=== PATIENT | male | born 1980 | race Caucasian/White ===

== ENCOUNTER 2017-03-26 13:42 | Emergency (ER) | payer MEDICARE, OTHER ==
[~2017-03-26] VITALS: Ht 185.4 cm; Wt 113.0 kg
[~2017-03-26 13:42] MED LIST: GLIM4TAB PO; INSU100I13 SQ; INSU100I17 SQ; LISI10TA2 PO; METF10002 PO; METO10TA81 PO; RANI150T2 PO
[2017-03-26] MEDS ORDERED: IV NORMAL SALINE 1,000ML 1,000 ML IV SCH (14:14)
[2017-03-26 14:20] VITALS: BP 153/98
[2017-03-26 14:22] LABS: BASO # 0.1 x10^3/uL (0.0-0.2); BASO % 1 % (0-3); EOS # 0.3 x10^3/uL (0.0-0.7); EOS % 6 % (0-3); HEMATOCRIT 28.6 % (39.0-53.0); HEMOGLOBIN 10.2 g/dL (13.0-17.5); LYMPH # 1.7 x10^3/uL (1.0-4.8); LYMPH % 28 % (24-48); MEAN CORPUSCULAR HEMOGLOBIN 29 pg (25-35); MEAN CORPUSCULAR HGB CONC 36 g/dL (31-37); MEAN CORPUSCULAR VOLUME 81 fL (79-100); MONO # 0.5 x10^3/uL (0.0-1.1); MONO % 8 % (0-9); NEUT # 3.5 x10^3uL (1.8-7.7); NEUT % 57 % (31-73); PLATELET COUNT 289 x10^3/uL (140-400); RED BLOOD COUNT 3.52 x10^6/uL (4.30-5.70); RED CELL DISTRIBUTION WIDTH 14.9 % (11.5-14.5); WHITE BLOOD COUNT 6.1 x10^3/uL (4.0-11.0)
--- NOTE | 2017-03-26 14:25 | PHYS DOC ---
General Chief Complaint: postop bleeding complication Stated Complaint: LAC Time Seen by MD: 14:11 Source: patient Exam Limitations: no limitations Problems: History of Present Illness Initial Comments between problems or patient is a 36-year-old male brought to the ED with left upper extremity bleeding. Patient states that he just finished an outpatient surgical procedure at [facility] to insert a hemodialysis fistula in his left arm. He states that he left there with no complications or complaints however as he was riding home he developed sudden onset spontaneous pulsatile bleeding from his left upper extremity. He applied direct pressure without any relief and was brought by his after school driver to this facility as it was the closest. On arrival he denies any pain he denies chest pain trouble breathing headache or focal weakness. He reconfirms that there was pulsatile bleeding initially, ED staff relays that they have applied multiple dressings and he has bled through them. Currently his heart rate is 83 bpm pressure is 168/104. Onset: just prior to arrival Severity: severe Pain/Injury Location: left arm Method of Injury: other Modifying Factors: improves with other Allergies: Coded Allergies: No Known Drug Allergies (Unverified , 05/22/16) Past Medical History Medical History: other (hypertension, diabetes, peripheral neuropathy, diabetic retinopathy) Surgical History: noncontributory Social History Smoker: non-smoker Alcohol: none Drugs: none Review of Systems Constitutional: denies chills, denies fever Respiratory: denies cough, denies shortness of breath Cardiovascular: denies chest pain, denies palpitations Gastrointestinal: denies nausea, denies vomiting Musculoskeletal: denies back pain, denies joint swelling Psychiatric/Neurological: denies headache, denies numbness, denies paresthesia Physical Exam General Appearance: severe distress HEENT: normal ENT inspection Cardiovascular/Respiratory: normal peripheral pulses, normal breath sounds, no respiratory distress Elbow/Forearm: normal ROM (profuse bleeding from left forearm fistula site sterile dressing applied) Neurologic/Tendon: normal sensation, normal motor functions, normal tendon functions, responds to pain, no evidence tendon injury Psychiatric: alert, oriented x 3 Skin: warm/dry (left forearm as above.), pallor Orders, Labs, Meds 1421: Staff reports that the patient is nauseous he was given a [place] PO prior to discharge from [facility]. He states that he took it on an empty stomach and is requesting something for nausea. Labs ordered, results will be available for [facility]. 36-year-old male comes to the ED with postoperative bleeding. Compression dressing applied and bleeding appears to be controlled temporarily, I discussed the patient with Dr. Thurman vascular surgeon who accepts the patient via EMS back to outpatient surgery at [facility]. Departure Time of Disposition: 14:21 Disposition: 02 XFER SHT-TRM HOSP Diagnosis: postop bleeding complication dialysis fistula Condition: STABLE Additional Instructions: EMS transfer to outpatient surgery at [facility] Dr. Thurman is the accepting physician. JAYLENE REID DO Mar 26, 2017 14:25
[2017-03-26] MEDS ORDERED: ONDANSETRON PF 4 MG/2 ML VIAL. IV ONE (14:45)
== END 2017-03-26 14:40 | disposition short-term general hospital (02) ==
LOC: ER 13:42
DX: T82.838A Hemorrhage due to vascular prosthetic devices, implants and grafts, initial encounter (principal); M96.830 Postprocedural hemorrhage of a musculoskeletal structure following a musculoskeletal system procedure; I10 Essential (primary) hypertension; E11.319 Type 2 diabetes mellitus with unspecified diabetic retinopathy without macular edema; E11.42 Type 2 diabetes mellitus with diabetic polyneuropathy; Z99.2 Dependence on renal dialysis; Z98.890 Other specified postprocedural states
CPT/HCPCS: 36415; 85027; 99285-25; J7030

== ENCOUNTER 2017-03-27 22:17 | Emergency (ER) | payer MEDICARE, OTHER ==
[~2017-03-27] VITALS: Ht 185.4 cm; Wt 111.6 kg
--- NOTE | 2017-03-27 22:45 | PHYS DOC ---
Past History Past Medical History: Diabetes, Hypertension, Renal Failure Past Surgical History: Other Alcohol Use: None Drug Use: None Adult General Chief Complaint Chief Complaint: WEAKNESS/GENERALIZED HPI HPI This is a pleasant 36-year-old male with a history of diabetes and end-stage renal disease presently going to dialysis through the Port-A-Cath on his chest wall. Recently had a fistula placed in his arm earlier in the week by Dr. Montilla vascular surgeon [facility]. He was seen on the seventh here in our emergency department for competitions of postoperative bleeding.between problems or patient is a 36-year-old male brought to the ED with left upper extremity bleeding. Patient states that he just finished an outpatient surgical procedure at [facility] to insert a hemodialysis fistula in his left arm. He states that he left there with no complications or complaints however as he was riding home he developed sudden onset spontaneous pulsatile bleeding from his left upper extremity. He applied direct pressure without any relief and was brought by his courtesy driver to this facility as it was the closest. From here he was seen direct pressure was applied and the bleeding was stopped. Patient was dispositioned to [facility] for a 24-hour observation. Over that time his hemoglobin dropped from a 10-7. Patient was discharged earlier today. Is now complaining of increased generalized weakness dizziness. He normally gets his dialysis Wednesday but since he missed his dialysis on Wednesday he had it today. During the session he began having some tingling to his mouth cramping in his fingertips and difficulties speaking secondary to this cramping. It subsided once the dialysis was stopped. He should complains of generalized weakness without chest pain, shortness of breath, focal neurologic deficits. His primary complaint is left forearm pain which is very swollen and tender. He's been taking oral Lortab to treat the symptoms. Review of Systems Review of Systems Constitutional: Denies fever or chills [] Eyes: Denies change in visual acuity, redness, or eye pain [] HENT: Denies nasal congestion or sore throat [] Respiratory: Denies cough or shortness of breath [] Cardiovascular: No additional information not addressed in HPI [] GI: Denies abdominal pain, nausea, vomiting, bloody stools or diarrhea [] : Denies dysuria or hematuria [] Musculoskeletal: He complains of left forearm pain. Integument: Denies rash or skin lesions [] Neurologic: He complains of generalized weakness. Endocrine: Denies polyuria or polydipsia [] Allergies Allergies Allergies Coded Allergies Type Severity Reaction Last Updated Verified No Known Drug Allergies 05/22/16 No Physical Exam Physical Exam Vital signs heart rate 85 blood pressure 154/70 saturations 98% in room air patient afebrile Constitutional: Well developed, patient is pale looking with a lot of edema in his lower extremity's. With an obvious wfalr-avr-[id number] amputation on the left. HENT: Normocephalic, atraumatic, bilateral external ears normal, mucous membranes no oral exudates, nose normal. Conjunctiva are very pale [] Eyes: PERRLA, EOMI, conjunctiva normal, no discharge. [] Neck: Normal range of motion, no tenderness, supple, no stridor. [] Cardiovascular:Heart rate regular rhythm, no murmur [] Lungs & Thorax: Bilateral breath sounds clear to auscultation [] Abdomen: Bowel sounds normal, soft, no tenderness, no masses, no pulsatile masses. [] Skin: She does a large fistula located on the left upper arm. There is a large area of ecchymoses and soft tissue swelling in the bicep and forearm. The compartments of the former soft. He's got brisk capillary refill +2 peripheral pulses of +2 and a palpable thrill over the fistula itself. There is no active bleeding noted. Extremities: Patient demonstrated some tenderness over the left forearm left bicep with a fistula was placed. There is no scleral signs of compartment syndrome at this time. Patient has sensation is intact to light touch and proprioception. The wound edges are well approximated with no active bleeding. Neurologic: Alert and oriented X 3, normal motor function, normal sensory function, no focal deficits noted. [] Psychologic: She is somewhat anxious and pale looking in appearance but his judgment is normal. Current Patient Data Vital Signs Vital Signs Date Time Temp Pulse Resp B/P (MAP) Pulse Ox O2 Delivery O2 Flow Rate FiO2 03/27/17 22:55 96 Room Air 03/27/17 23:10 98.3 88 20 Vital Signs Date Time Temp Pulse Resp B/P (MAP) Pulse Ox O2 Delivery O2 Flow Rate FiO2 03/27/17 23:10 98.3 88 20 97 Room Air Lab Results Laboratory Tests Test 03/27/17 22:44 03/27/17 23:22 Sodium Level 137 mmol/L (136-145) Potassium Level 4.3 mmol/L (3.5-5.1) Chloride Level 98 mmol/L (98-107) Carbon Dioxide Level 32 mmol/L (21-32) Anion Gap 7 (6-14) Blood Urea Nitrogen 44 mg/dL (8-26) H Creatinine 8.6 mg/dL (0.7-1.3) H Estimated GFR (Cockcroft-Gault) 7.0 BUN/Creatinine Ratio 5 (6-20) L Glucose Level 129 mg/dL (70-99) H Calcium Level 7.9 mg/dL (8.5-10.1) L Total Bilirubin 0.2 mg/dL (0.2-1.0) Aspartate Amino Transferase (AST) 14 U/L (15-37) L Alanine Aminotransferase (ALT) 7 U/L (16-63) L Alkaline Phosphatase 66 U/L (46-116) Troponin I Quantitative 0.025 ng/mL (0-0.055) Total Protein 6.5 g/dL (6.4-8.2) Albumin 2.9 g/dL (3.4-5.0) L Albumin/Globulin Ratio 0.8 (1.0-1.7) L White Blood Count 5.8 x10^3/uL (4.0-11.0) Red Blood Count 2.30 x10^6/uL (4.30-5.70) L Hemoglobin 6.5 g/dL (13.0-17.5) Hematocrit 18.5 % (39.0-53.0) Mean Corpuscular Volume 81 fL (79-100) Mean Corpuscular Hemoglobin 29 pg (25-35) Mean Corpuscular Hemoglobin Concent 35 g/dL (31-37) Red Cell Distribution Width 15.2 % (11.5-14.5) H Platelet Count 216 x10^3/uL (140-400) Neutrophils (%) (Auto) 66 % (31-73) Lymphocytes (%) (Auto) 20 % (24-48) L Monocytes (%) (Auto) 8 % (0-9) Eosinophils (%) (Auto) 5 % (0-3) H Basophils (%) (Auto) 1 % (0-3) Neutrophils # (Auto) 3.8 x10^3uL (1.8-7.7) Lymphocytes # (Auto) 1.1 x10^3/uL (1.0-4.8) Monocytes # (Auto) 0.5 x10^3/uL (0.0-1.1) Eosinophils # (Auto) 0.3 x10^3/uL (0.0-0.7) Basophils # (Auto) 0.0 x10^3/uL (0.0-0.2) EKG EKG [] EKG read by Dr. Prasad demonstrates a normal sinus rhythm heart rate 85. Lomotil 150 QRS of 80 QTc of 02/21/75 which is mildly elevated. Patient has no ST segment or T-wave changes consistent with acute ischemia there is no PTs or flattened PTs reminiscent of hyperkalemia. Radiology/Procedures Radiology/Procedures [] Course & Med Decision Making Course & Med Decision Making Pertinent Labs and Imaging studies reviewed. (See chart for details) patient's history and physical concerning for early compartment syndrome secondary to facial bleeding into the forearm. Patient's has peripheral pulses that are intact, sensation is intact, and brisk capillary refill. It is also apparent from his history and physical exam findings that he might be very anemic from blood loss from the fistula. We will check an H&H type and screen him for several units if necessary to transfuse him. We will order to begin looking at transfer because there is no vascular services at this hospital system that may need to intervene in case she begins to bleed again. Time was now 11:30 PM Patient tells me that their symptoms given during CC are improved. We reviewed labs which demonstrated an increased need for blood as his hemoglobin is at follow-up: To 6.5 Patient tells me that their symptoms given during CC are improved. Time is now 12:15 am patient denied discussed reason for transfer to [facility] for blood transfusion and evaluation by vascular surgery to ensure that compartment syndrome does not develop. Advisory Software Engineer note: Internal medicine paged at 11:45 PM Advisory Software Engineer called at of the service Dr. Silva Consult called back at approximately 12:12 AM Discussed the case I presented and they agreed with admission. Time of acceptance [address] Silva is planning to transfuse him this morning but according to the nursing notes nephrology discharged him before transfusion was completed. His vital signs been stabilized patient given blood products in route. Patient will be placed in a telemetry bed there at [facility] and seen the vascular surgeon and internal medicine. Impression: Anemia, possible compartment syndrome Disposition: Transfer to [facility]. Dragon Disclaimer Dragon Disclaimer This chart was dictated in whole or in part using Voice Recognition software in a busy, high-work load, and often noisy Emergency Department environment. It may contain unintended and wholly unrecognized errors or omissions. Departure Departure: Impression: Primary Impression: Anemia associated with acute blood loss Additional Impression: Complication of AV dialysis fistula Disposition: XFER SHT-TRM HOSP Condition: GUARDED Referrals: JACE RIZO (PCP) Problem Qualifiers RODRICK PRASAD MD Mar 27, 2017 22:45
[2017-03-27] MEDS ORDERED: fentaNYL PF 100 MCG/2 ML VIAL IV ONE (23:00)
[2017-03-27 23:10] VITALS: BP 156/66
--- NOTE | 2017-03-27 23:16 | EKG ---
[address] [address] Test Date: 2017-03-27 Test Time: 23:02:01 Pat Name: BONNIE TINEO Department: Room: Gender: M Parking Lot Attendant And Cashier: : 1980 Requested By: RODRICK PRASAD Order Number: [id number] Reading MD: Measurements Intervals [place] Rate: 85 P: 144 RI: 150 QRS: 178 QRSD: 80 T: 59 QT: 394 QTc: 475 Interpretive Statements SINUS RHYTHM ABNORMAL RIGHT AXIS DEVIATION NON SPECIFIC T ABNORMALITY RI6.01 Unconfirmed report No previous ECG available for comparison
[2017-03-27 23:18] LABS: ALBUMIN 2.9 g/dL (3.4-5.0); ALBUMIN/GLOBULIN RATIO 0.8 (1.0-1.7); CALCIUM 7.9 mg/dL (8.5-10.1); CREATININE 8.6 mg/dL (0.7-1.3); POTASSIUM 4.3 mmol/L (3.5-5.1); TOTAL BILIRUBIN 0.2 mg/dL (0.2-1.0); TOTAL PROTEIN 6.5 g/dL (6.4-8.2)
[2017-03-27 23:37] LABS: BASO % 1 % (0-3); EOS # 0.3 x10^3/uL (0.0-0.7); EOS % 5 % (0-3); LYMPH # 1.1 x10^3/uL (1.0-4.8); LYMPH % 20 % (24-48); MEAN CORPUSCULAR HEMOGLOBIN 29 pg (25-35); MEAN CORPUSCULAR HGB CONC 35 g/dL (31-37); MEAN CORPUSCULAR VOLUME 81 fL (79-100); MONO # 0.5 x10^3/uL (0.0-1.1); MONO % 8 % (0-9); NEUT # 3.8 x10^3uL (1.8-7.7); NEUT % 66 % (31-73); PLATELET COUNT 216 x10^3/uL (140-400); RED CELL DISTRIBUTION WIDTH 15.2 % (11.5-14.5); WHITE BLOOD COUNT 5.8 x10^3/uL (4.0-11.0)
[2017-03-27 23:50] LABS: HEMATOCRIT 18.5 % (39.0-53.0); HEMOGLOBIN 6.5 g/dL (13.0-17.5)
[2017-03-28] MEDS ORDERED: HYDROmorphone PF 1 MG/ML DISP.SYRIN IV ONE (00:30)
== END 2017-03-28 01:00 | disposition short-term general hospital (02) ==
LOC: ER 22:17
DX: T82.898A Other specified complication of vascular prosthetic devices, implants and grafts, initial encounter (principal); D62 Acute posthemorrhagic anemia; M79.632 Pain in left forearm; E11.22 Type 2 diabetes mellitus with diabetic chronic kidney disease; I12.0 Hypertensive chronic kidney disease with stage 5 chronic kidney disease or end stage renal disease; N18.6 End stage renal disease; Z99.2 Dependence on renal dialysis
CPT/HCPCS: 36415; 80053; 84484; 85027; 86850; 86900; 86901; 86920; 93005; 96374; 96375; 99285; J1170; J3010

== ENCOUNTER 2021-04-30 23:21 | Emergency (ER) | payer MEDICARE, OTHER ==
[~2021-04-30] VITALS: Ht 185.4 cm; Wt 128.3 kg
[~2021-04-30 23:21] MED LIST changes: +LISI10TA16 PO; -LISI10TA2 PO; -METF10002 PO; +METF10007 PO
[2021-04-30] MEDS ORDERED: IV NORMAL SALINE 500ML 500 ML IV ONE (23:45)
[2021-04-30] MEDS ORDERED: INSULIN REGULAR 100 UNIT/ML 3ML VIAL. IV ONE (23:45)
[2021-04-30] MEDS ORDERED: SULF1TAB24 PO (23:53)
--- NOTE | 2021-04-30 23:54 | PHYS DOC ---
Past History Past Medical History: CHF, Depression, Hypertension, Renal Failure Past Surgical History: Other Additional Past Surgical Histo: BKA-LEFT LEG, CARDIAC STENT, CATARACT Alcohol Use: None Drug Use: None General Adult EDM: Chief Complaint: ABSCESS HPI: HPI: 40-year-old male presents via EMS with abscess of the posterior left thigh. Patient also is on dialysis and is a nondiabetic. His blood sugar read as high in the ambulance. He tells me has had this abscess for about 2 weeks. It became much more painful today so he thought he needed to have it addressed. He has not seen anyone for it yet. He is not on any antibiotics. His dialysis today was normal for him. He tells me that his blood sugars have been in the upper 200s, not above 400. On arrival his blood sugar was above 500. Patient denies fever or chills. Review of Systems: Review of Systems: Constitutional: Denies fever or chills Eyes: Denies change in visual acuity HENT: Denies nasal congestion or sore throat Respiratory: Denies cough or shortness of breath Cardiovascular: Denies chest pain or edema GI: Denies abdominal pain, nausea, vomiting, bloody stools or diarrhea : Denies dysuria Musculoskeletal: Denies back pain or joint pain Integument: Abscess left posterior thigh Neurologic: Denies headache, focal weakness or sensory changes Endocrine: Denies polyuria or polydipsia Lymphatic: Denies swollen glands Psychiatric: Denies depression or anxiety Current Medications: Current Meds: Current Medications Medications (Trade) Dose Ordered Sig/Harpreet Start Time Stop Time Status Last Admin Dose Admin Insulin Human Regular (HumuLIN R VIAL) 10 unit 1X ONCE 04/30/21 23:45 04/30/21 23:46 DC Sodium Chloride 500 ml @ 0 mls/hr 1X ONCE 04/30/21 23:45 04/30/21 23:46 DC Allergies: Allergies: Allergies Coded Allergies Type Severity Reaction Last Updated Verified No Known Drug Allergies 03/27/17 No Physical Exam: PE: Constitutional: Well developed, well nourished, morbidly obese, no acute distress, non-toxic appearance. [] HENT: Normocephalic, atraumatic, bilateral external ears normal, oropharynx moist, no oral exudates, nose normal. [] Eyes: PERRLA, EOMI, conjunctiva normal, no discharge. [] Neck: Normal range of motion, no tenderness, supple, no stridor. [] Cardiovascular: Heart rate regular rhythm, no murmur [] Lungs & Thorax: Bilateral breath sounds clear to auscultation [] Abdomen: Bowel sounds normal, soft, no tenderness, no masses, no pulsatile masses. [] Skin: Warm erythematous 2 cm wound with central fluctuance of the posterior left thigh [] Back: No tenderness, no CVA tenderness. [] Extremities: Left below the knee amputation [] Neurologic: Alert and oriented X 3, normal motor function, normal sensory function, no focal deficits noted. [] Psychologic: Affect normal, judgement normal, mood normal. [] Current Patient Data: Labs: Laboratory Tests Test 04/30/21 23:31 Glucose (Fingerstick) 548 mg/dL (70-99) *H Vital Signs: Vital Signs Date Time Temp Pulse Resp B/P (MAP) Pulse Ox O2 Delivery O2 Flow Rate FiO2 04/30/21 23:26 98.2 97 18 138/77 95 Room Air EKG: EKG: [] Radiology/Procedures: Radiology/Procedures: [] Heart Score: C/O Chest Pain: N/A Risk Factors: Risk Factors: DM, Current or recent (<one month) smoker, HTN, HLP, family history of CAD, obesity. Risk Scores: Score 0 - 3: 2.5% MACE over next 6 weeks - Discharge Home Score 4 - 6: 20.3% MACE over next 6 weeks - Admit for Clinical Observation Score 7 - 10: 72.7% MACE over next 6 weeks - Early Invasive Strategies Course & Med Decision Making: Course & Med Decision Making Pertinent Labs and Imaging studies reviewed. (See chart for details) The patient's blood sugar is quite high. We will give him a small amount of fluid 500 of NS and 10 units of insulin. He did have an abscess on his left leg which I performed an incision and drain on. See note below for more details. I given the patient Zosyn in the ED and will discharge him with a prescription for Bactrim. The patient's labs are significant for hemoglobin of 7.7. There is no obvious source of bleeding. Review of his chart shows a hemoglobin of 6.5 but this was several years ago. I do not have a baseline for the patient. He does not appear to be symptomatic. He does not meet transfusion criteria at this time. The patient has been given an additional 10 units of insulin IV. His blood sugar has improved to less than 300. He is stable for discharge at this time. [] Dragon Disclaimer: Dragon Disclaimer: This electronic medical record was generated, in whole or in part, using a voice recognition dictation system. Incision and Drainage Indication: Abscess posterior left thigh Procedure: I obtained verbal consent from the patient for incision and drainage of his left leg abscess. The area was cleansed with alcohol. I anesthetized the wound with 1 cc of 1% lidocaine with epinephrine. A 4 mm incision was made with a #11 blade. Purulent material was expressed. I probed the area with a sterile Q-tip to break up all loculations. There was further expression of purulent material. No packing was used. A clean dressing was applied over the wound. The patient tolerated the procedure well. Complications: None. Departure Departure: Impression: Primary Impression: Hyperglycemia Additional Impressions: Abscess of left leg Anemia Disposition: HOME / SELF CARE / HOMELESS Condition: IMPROVED Referrals: JACE RIZO (PCP) Patient Instructions: Abscess, Care After Scripts Sulfamethoxazole/Trimethoprim (BACTRIM DS TABLET) 1 Each Tablet 1 TAB PO BID for cellulitis for 7 Days, #14 TAB 0 Refills Prov: ELIZA COLBERT DO 04/30/21 ELIZA COLBERT DO Apr 30, 2021 23:54
[2021-05-01] MEDS ORDERED: IV NORMAL SALINE 50ML 50 ML ONE (00:06)
[2021-05-01] MEDS ORDERED: PIPERACILLIN/TAZOBACTAM 3.375 GM VIAL IV ONE (00:06)
[2021-05-01 00:30] LABS: ALBUMIN 2.4 g/dL (3.4-5.0); ALBUMIN/GLOBULIN RATIO 0.6 (1.0-1.7); CALCIUM 7.6 mg/dL (8.5-10.1); CREATININE 5.1 mg/dL (0.7-1.3); GFR 12.6; POTASSIUM 3.3 mmol/L (3.5-5.1); TOTAL BILIRUBIN 0.3 mg/dL (0.2-1.0); TOTAL PROTEIN 6.2 g/dL (6.4-8.2)
[2021-05-01] MEDS ORDERED: ONDANSETRON PF 4 MG/2 ML VIAL. IVP ONE (00:30)
[2021-05-01] MEDS ORDERED: MORPHINE SULFATE 4 MG/ML DISP.SYRIN. IV ONE ×2 (00:30→02:30)
[2021-05-01] MEDS ORDERED: PIPERACILLIN/TAZOBACTAM 3.375 GM in IV NORMAL SALINE 50ML 50 ML IV ONE (00:30)
[2021-05-01 01:15] LABS: BASO % 1 % (0-3); EOS # 0.2 x10^3/uL (0.0-0.7); EOS % 4 % (0-3); HEMATOCRIT 22.4 % (39.0-53.0); HEMOGLOBIN 7.7 g/dL (13.0-17.5); LYMPH # 0.6 x10^3/uL (1.0-4.8); LYMPH % 10 % (24-48); MEAN CORPUSCULAR HEMOGLOBIN 30 pg (25-35); MEAN CORPUSCULAR HGB CONC 35 g/dL (31-37); MEAN CORPUSCULAR VOLUME 86 fL (79-100); MONO # 0.5 x10^3/uL (0.0-1.1); MONO % 8 % (0-9); NEUT # 4.4 x10^3uL (1.8-7.7); NEUT % 77 % (31-73); PLATELET COUNT 221 x10^3/uL (140-400); RED CELL DISTRIBUTION WIDTH 16.6 % (11.5-14.5); WHITE BLOOD COUNT 5.6 x10^3/uL (4.0-11.0)
[2021-05-01] MEDS ORDERED: INSULIN REGULAR 100 UNIT/ML 3ML VIAL. IV ONE (01:30)
[2021-05-01] MEDS ORDERED: HYDROmorphone PF 1 MG/ML DISP.SYRIN IVP ONE (02:00)
[2021-05-01 02:45] VITALS: BP 118/56
== END 2021-05-01 02:48 | disposition home or self-care (01) ==
LOC: ER 23:21
DX: L02.416 Cutaneous abscess of left lower limb (principal); D64.9 Anemia, unspecified; I13.0 Hypertensive heart and chronic kidney disease with heart failure and stage 1 through stage 4 chronic kidney disease, or unspecified chronic kidney disease; N18.9 Chronic kidney disease, unspecified; I50.9 Heart failure, unspecified
CPT/HCPCS: 10060; 36415; 80053; 82947; 85025; 96365; 96375; 96376; 99285; J1815; J2270; J2405; J2543; J7040

== ENCOUNTER 2021-06-25 14:58 | Emergency (ER) | payer OTHER ==
[~2021-06-25] VITALS: Ht 185.4 cm; Wt 128.7 kg
[~2021-06-25 14:58] MED LIST changes: +SULF1TAB24 PO
[2021-06-25] MEDS ORDERED: CLOB15CR TP ×2 (15:37→15:51)
--- NOTE | 2021-06-25 15:38 | PHYS DOC ---
Past History Past Medical History: CHF, Depression, Hypertension, Renal Failure Past Surgical History: Other Additional Past Surgical Histo: BKA-LEFT LEG, CARDIAC STENT, CATARACT Alcohol Use: None Drug Use: None General Adult EDM: Chief Complaint: PENIS PROBLEM HPI: HPI: 40-year-old male presents via EMS from dialysis with penis pain. The patient is on dialysis and does not make urine. He was complaining to the nurse penis pain and they decided he should come into the ER for evaluation. The patient states that he care facility but they have only given him a little bit of pain medication and topical lidocaine. The patient states that his problem started 3 weeks ago with itching. It then turned into an ulcer on the crown of his penis. It is painful and pruritic. Patient denies being sexually active. Denies fever or chills. He has no other complaints this time. Review of Systems: Review of Systems: Constitutional: Denies fever or chills Eyes: Denies change in visual acuity HENT: Denies nasal congestion or sore throat Respiratory: Denies cough or shortness of breath Cardiovascular: Denies chest pain or edema GI: Denies abdominal pain, nausea, vomiting, bloody stools or diarrhea : Penis pain, penis lesion Musculoskeletal: Denies back pain or joint pain Integument: Denies rash Neurologic: Denies headache, focal weakness or sensory changes Endocrine: Denies polyuria or polydipsia Lymphatic: Denies swollen glands Psychiatric: Denies depression or anxiety Allergies: Allergies: Allergies Coded Allergies Type Severity Reaction Last Updated Verified metoclopramide Allergy Unknown 06/25/21 Yes Physical Exam: PE: Constitutional: Well developed, well nourished, no acute distress, non-toxic appearance. [] HENT: Normocephalic, atraumatic, bilateral external ears normal, oropharynx moist, no oral exudates, nose normal. [] Eyes: PERRLA, EOMI, conjunctiva normal, no discharge. [] Neck: Normal range of motion, no tenderness, supple, no stridor. [] Cardiovascular: Heart rate regular rhythm, no murmur [] Lungs & Thorax: Bilateral breath sounds clear to auscultation [] Abdomen: Bowel sounds normal, soft, no tenderness, no masses, no pulsatile masses. [] Skin: White ulcerative lesion on the glands of the penis with surrounding swol aurelia, erythematous, friable skin. [] Back: No tenderness, no CVA tenderness. [] Extremities: No tenderness, no cyanosis, no clubbing, ROM intact, no edema. Left lower leg amputation [] Neurologic: Alert and oriented X 3, normal motor function, normal sensory function, no focal deficits noted. [] Psychologic: Affect normal, judgement normal, mood normal. [] Current Patient Data: Vital Signs: Vital Signs Date Time Temp Pulse Resp B/P (MAP) Pulse Ox O2 Delivery O2 Flow Rate FiO2 06/25/21 15:02 98.4 92 22 150/70 (96) 98 Room Air EKG: EKG: [] Radiology/Procedures: Radiology/Procedures: [] Heart Score: C/O Chest Pain: N/A Risk Factors: Risk Factors: DM, Current or recent (<one month) smoker, HTN, HLP, family history of CAD, obesity. Risk Scores: Score 0 - 3: 2.5% MACE over next 6 weeks - Discharge Home Score 4 - 6: 20.3% MACE over next 6 weeks - Admit for Clinical Observation Score 7 - 10: 72.7% MACE over next 6 weeks - Early Invasive Strategies Course & Med Decision Making: Course & Med Decision Making Pertinent Labs and Imaging studies reviewed. (See chart for details) The patient's physical exam and description of it starting out as pruritic raises the question of balanitis xerotica obliterans. I will treat the patient with clobetasol 0.05% cream as well as recommending he be seen by urology at his care facility. I will give the patient 1 [place] in the ER. His providers at his care facility should be able to handle further pain medication needs. He is stable for discharge at this time. [] Dragon Disclaimer: Dragon Disclaimer: This electronic medical record was generated, in whole or in part, using a voice recognition dictation system. Departure Departure: Impression: Primary Impression: Balanitis xerotica obliterans Disposition: HOME / SELF CARE / HOMELESS Condition: STABLE Referrals: MARCELA CANNON MD (PCP) Patient Instructions: Balanitis-Brief Additional Instructions: I would like to try clobetasol cream twice a day for the patient's penis lesion. I also strongly recommend that he be seen by urology or dermatology as soon as possible for follow-up. Scripts Clobetasol Propionate (CLOBETASOL PROPIONATE) 15 Gm Cream..g. 1 KARIE TP BID for penis rash for 14 Days, #30 GM 1 Refill Prov: ELIZA COLBERT DO 06/25/21 ELIZA COLBERT DO Jun 25, 2021 15:38
[2021-06-25] MEDS ORDERED: HYDROcodone/APAP 7.5/325MG 1 TAB TABLET PO ONE (15:45)
[2021-06-25 17:00] VITALS: BP 173/84
== END 2021-06-25 17:26 | disposition home or self-care (01) ==
LOC: ER 14:58
DX: N48.0 Leukoplakia of penis (principal); I13.0 Hypertensive heart and chronic kidney disease with heart failure and stage 1 through stage 4 chronic kidney disease, or unspecified chronic kidney disease; N18.9 Chronic kidney disease, unspecified; I50.9 Heart failure, unspecified; Z99.2 Dependence on renal dialysis; Z89.512 Acquired absence of left leg below knee; Z88.8 Allergy status to other drugs, medicaments and biological substances
CPT/HCPCS: 99284

== ENCOUNTER 2021-09-27 18:55 | Emergency (ER) | payer OTHER ==
[~2021-09-27] VITALS: Ht 185.4 cm; Wt 128.7 kg
[~2021-09-27 18:55] MED LIST changes: +CLOB15CR TP
[2021-09-27] MEDS ORDERED: oxyCODONE/APAP 5/325 1 TAB TABLET PO ONE (19:00)
--- NOTE | 2021-09-27 19:04 | PHYS DOC ---
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 States he was reaching over to get something and fell out of his wheelchair onto his left side, and also hit his head. Denies any loss of consciousness, changes in vision, neck pain, other chest pain, shortness of breath, abdominal pain, nausea, vomiting. States he is on Eliquis. Denies any recent hematemesis, hematuria or blood in the stool or tarry black stools. States he does have a history of GI ulcer, [facility] showing a bleeding ulcer. Review of Systems Review of Systems Constitutional: Denies fever or chills [] Eyes: Denies change in visual acuity, redness, or eye pain [] HENT: Denies nasal congestion or sore throat [] Respiratory: Denies cough or shortness of breath [] Cardiovascular: No additional information not addressed in HPI [] GI: Denies abdominal pain, nausea, vomiting, bloody stools or diarrhea [] : Denies dysuria or hematuria [] Musculoskeletal: Denies back pain or joint pain [] Integument: Denies rash or skin lesions [] Neurologic: Denies headache, focal weakness or sensory changes [] Endocrine: Denies polyuria or polydipsia [] All other systems were reviewed and found to be within normal limits, except as documented in this note. Allergies Allergies Allergies Coded Allergies Type Severity Reaction Last Updated Verified metoclopramide Allergy Unknown 06/25/21 Yes Physical Exam Physical Exam Constitutional: Well developed, well nourished, no acute distress, non-toxic appearance. [] HENT: Normocephalic, atraumatic, bilateral external ears normal, oropharynx moist, no oral exudates, nose normal. [] Eyes: PERRLA, EOMI, conjunctiva normal, no discharge. [] Neck: Normal range of motion, no tenderness, supple, no stridor. [] Cardiovascular:Heart rate regular rhythm, no murmur [] Lungs & Thorax: Patient has left-sided lateral chest wall tenderness to palpation with no obvious bruising or deformities, no respiratory distress, increased work of breathing noted, breath sounds nonconcerning Abdomen: soft, no tenderness, no masses, no pulsatile masses. [] Skin: Warm, dry, no erythema, no rash. [] Back: No tenderness, Extremities: No tenderness, no cyanosis, no clubbing, ROM intact, no edema. [] Neurologic: Alert and oriented X 3, normal motor function, normal sensory function, no focal deficits noted. [] Psychologic: Affect normal, judgement normal, mood normal. [] EKG EKG [] Radiology/Procedures Radiology/Procedures [] FINDINGS: Heart size is normal. No pericardial effusion. Visualized lung bases are clear. No pleural effusion. Nodular contour the liver. Spleen, pancreas, gallbladder and adrenals are unremarkable. No perinephric inflammation or hydronephrosis. Kidneys are atrophic bilaterally. No renal or ureteral calculi are identified. Bladder is decompressed not well evaluated. Prostate is not enlarged. Moderate amount of stool is noted throughout the colon. Appendix is normal. Small bowel is unremarkable. Large amount of simple ascites noted throughout the abdomen. No free intra-abdominal air. Abdominal aorta has normal course and caliber. No enlarged intra-abdominal lymph nodes are identified. No suspicious osseous lesions or acute fractures IMPRESSION: 1. Large amount of intra-abdominal ascites which is simple. No intra-abdominal hemorrhage. 2. No sequela of acute traumatic injury identified within the abdomen or pelvis. Heart Score C/O Chest Pain: No HEART Score for Chest Pain: HEART Score for Chest Pain Response (Comments) Value History Slighlty/Non-Suspicious 0 ECG Normal 0 Age < 45 0 Risk Factors 1 or 2 Risk Factors 1 Troponin >3 x Normal Limit 2 Total 3 Risk Factors: Risk Factors: DM, Current or recent (<one month) smoker, HTN, HLP, family history of CAD, obesity. Risk Scores: Risk Factors: DM, Current or recent (<one month) smoker, HTN, HLP, family history of CAD, obesity. Course & Med Decision Making Course & Med Decision Making Patient is a 40-year-old male who presents with left-sided chest wall pain after falling out of his wheelchair Vital signs notable for hypertension. Physical exam noted above. EKG with rate of 99, QRS of 90, 465 QTC and no STEMI Laboratory analysis approximately normal for patient postdialysis x1 day. Imaging notable for significant amounts of abdominal ascites, and patient states that he usually has it drained weekly or biweekly at [facility] and would like to be transferred there. Patient given a unit of packed red blood cells for hemoglobin of 6.8. Given high concentration albumin. Given antibiotics. Given Protonix. Given pain medicine. Given amount of patient's ascites I feel this is contributing to his overall clinical picture and since we are unable to find him a bed performed a therapeutic paracentesis at bedside. Clean the area with Betadine. Anesthetize d with 1% lidocaine 3 mL. Use POC ultrasound to identify fluid and easy centesis kit for drainage. Only to vacuum bottles available so only 2 L pulled. Continued on albumin. Rest of patient's care handed off to day team [] Dragon Disclaimer Dragon Disclaimer This electronic medical record was generated, in whole or in part, using a voice recognition dictation system. Departure Departure: Impression: Primary Impression: Anemia Additional Impressions: Hemoglobin A1c less than 7.0% Abdominal ascites Dialysis patient Condition: STABLE Referrals: MARCELA CANNON MD (PCP) Problem Qualifiers ANGEL MONTEMAYOR MD Sep 27, 2021 19:04
[2021-09-27] MEDS ORDERED: ASPIRIN CHEWABLE 81 MG TABLET. PO ONE (20:15)
[2021-09-27] MEDS ORDERED: NITROGLYCERIN SUBLINGUAL 0.4 MG BOTTLE OF 25. SL PRN (20:30)
[2021-09-27 20:59] LABS: BASO # 0.1 x10^3/uL (0.0-0.2); BASO % 1 % (0-3); EOS # 0.4 x10^3/uL (0.0-0.7); EOS % 5 % (0-3); HEMATOCRIT 20.5 % (39.0-53.0); LYMPH # 0.9 x10^3/uL (1.0-4.8); LYMPH % 11 % (24-48); MEAN CORPUSCULAR HEMOGLOBIN 30 pg (25-35); MEAN CORPUSCULAR HGB CONC 33 g/dL (31-37); MEAN CORPUSCULAR VOLUME 90 fL (79-100); MONO # 0.6 x10^3/uL (0.0-1.1); MONO % 7 % (0-9); NEUT # 6.1 x10^3uL (1.8-7.7); NEUT % 76 % (31-73); PLATELET COUNT 276 x10^3/uL (140-400); RED BLOOD COUNT 2.28 x10^6/uL (4.30-5.70); RED CELL DISTRIBUTION WIDTH 14.5 % (11.5-14.5)
[2021-09-27 21:03] LABS: HEMOGLOBIN 6.8 g/dL (13.0-17.5)
[2021-09-27 21:08] LABS: CALCIUM 9.7 mg/dL (8.5-10.1); CREATININE 7.2 mg/dL (0.7-1.3); GFR 8.4; POTASSIUM 4.6 mmol/L (3.5-5.1)
--- NOTE | 2021-09-27 21:11 | RAD ---
Exam: CT head INDICATION: Fall on blood thinner TECHNIQUE: Sequential axial images through the head were obtained without the administration of IV co ntrast. Exposure: One or more of the following in the visualized dose reduction techniques were utilized for this examination: 1. Automated exposure control 2. Adjustment of the MA and/or KV according to patient size 3. Use of iterative of reconstructive technique Comparisons: None FINDINGS: No focal parenchymal lesion or hemorrhage is identified. There is no midline shift or sulcal effaceme nt. Mild patchy hypodensity in the periventricular white matter No acute vascular territory infarction is identified. Potter-white distinction is preserved. The ventricular system is within normal limits without compression hydrocephalus. The basal cisterns are well maintained. The visualized portions of the paranasal sinuses and mastoid air cells are well-pneumatized. No acute fractures. IMPRESSION: Mild small vessel schema change, technically age indeterminate without recent prior imaging. No seque la of acute traumatic injury identified intracranially Electronically signed by: Franky Wong MD (09/27/2021 9:09 PM) [facility]
[2021-09-27 21:13] LABS: ALBUMIN 1.7 g/dL (3.4-5.0); ALBUMIN/GLOBULIN RATIO 0.4 (1.0-1.7); TOTAL BILIRUBIN 0.2 mg/dL (0.2-1.0); TOTAL PROTEIN 5.8 g/dL (6.4-8.2)
--- NOTE | 2021-09-27 21:23 | RAD ---
Exam: CT of chest without contrast INDICATION: Fall on blood thinner TECHNIQUE: Sequential axial images through the chest obtained without IV contrast. Sagittal and coron al reformatted images were reconstructed from the axial data and reviewed. Exposure: One or more of the following in the visualized dose reduction techniques were utilized for this examination: 1. Automated exposure control 2. Adjustment of the MA and/or KV according to patient size 3. Use of iterative of reconstructive technique Comparisons: None FINDINGS: Visualized portions of the thyroid are unremarkable. No enlarged mediastinal lymph nodes are identifi ed. Heart size is normal. Mitral annular calcifications noted. There is severe coronary artery calcium le sions. Coronary right has passed are also seen. Thoracic aorta has a normal course and caliber. Pulmonary artery is not enlarged. Airways are patent. No consolidation or pneumothorax. No suspicious lung nodules. Trace left pleural effusion. Moderate amount of intra-abdominal ascites. No suspicious osseous lesions or acute fractures. IMPRESSION: 1. No sequela of acute traumatic injury identified within the chest. 2. Large amount of intra-abdominal ascites. Correlate for known causes of ascites and for history of ascites. In the acute traumatic setting if there is concerns for intra-abdominal trauma CT of the ab domen and pelvis is recommended. FOR INTERNAL CODING PURPOSES Critical result: Findings discussed with ANGEL MONTEMAYOR MD at 09/27/2021 9:20 PM. RESULT CODE: (C) Electronically signed by: Franky Wong MD (09/27/2021 9:20 PM) [facility]
[2021-09-27] MEDS ORDERED: IOHEXOL 300 MG/ML 75 ML VIAL. IV ONE (21:30)
[2021-09-27] MEDS ORDERED: CONTRAST GIVEN. MC PRN (21:30)
[2021-09-27] MEDS ORDERED: PANTOPRAZOLE IV 40 MG VIAL. IVP ONE (21:30)
[2021-09-27 21:43] LABS: FECAL OB PT NEGATIVE (NEG)
--- NOTE | 2021-09-27 22:06 | RAD ---
Exam: CT of abdomen and pelvis with contrast INDICATION: Abdominal distention TECHNIQUE: Sequential axial images through the abdomen and pelvis obtained following the administrati on of 75 mL of Omni 300 IV contrast. Sagittal and coronal reformatted images were reconstructed from the axial data and reviewed. Exposure: One or more of the following in the visualized dose reduction techniques were utilized for this examination: 1. Automated exposure control 2. Adjustment of the MA and/or KV according to patient size 3. Use of iterative of reconstructive technique Comparisons: None FINDINGS: Heart size is normal. No pericardial effusion. Visualized lung bases are clear. No pleural effusion. Nodular contour the liver. Spleen, pancreas, gallbladder and adrenals are unremarkable. No perinephric inflammation or hydronephrosis. Kidneys are atrophic bilaterally. No renal or ureteral calculi are identified. Bladder is decompressed not well evaluated. Prostate is not enlarged. Moderate amount of stool is noted throughout the colon. Appendix is normal. Small bowel is unremarkab le. Large amount of simple ascites noted throughout the abdomen. No free intra-abdominal air. Abdominal aorta has normal course and caliber. No enlarged intra-abdominal lymph nodes are identified. No suspicious osseous lesions or acute fractures IMPRESSION: 1. Large amount of intra-abdominal ascites which is simple. No intra-abdominal hemorrhage. 2. No sequela of acute traumatic injury identified within the abdomen or pelvis. Electronically signed by: Franky Wong MD (09/27/2021 10:04 PM) [facility]
[2021-09-27] MEDS ORDERED: ALBUMIN HUMAN 25% 50 ML IV ONE (23:45)
[2021-09-27 23:59] VITALS: BP 141/85
[2021-09-28 00:14] VITALS: BP 143/89
[2021-09-28] MEDS ORDERED: MORPHINE SULFATE 4 MG/ML DISP.SYRIN. IV ONE ×4 (00:15→13:30)
--- NOTE | 2021-09-28 00:27 | EKG ---
[address] [address] Test Date: 2021-09-27 Test Time: 19:23:08 Pat Name: BONNIE TINEO Department: Room: Gender: M Waste Collection Driver: SPENCER : 1980 Requested By: ANGEL MONTEMAYOR Order Number: [id number] Reading MD: Akash Thompson Measurements Intervals [place] Rate: 99 P: 45 [place]: 164 QRS: -29 QRSD: 90 T: 112 QT: 358 QTc: 465 Interpretive Statements SINUS RHYTHM LEFTWARD AXIS NON SPECIFIC ST-T WAVE CHANGES Electronically Signed On 10-04-2021 17:48:06 [employer] by Akash Thompson
[2021-09-28 00:47] VITALS: BP 125/77
[2021-09-28 01:30] VITALS: BP 113/71
[2021-09-28 02:12] VITALS: BP 141/80
[2021-09-28] MEDS ORDERED: ALBUMIN HUMAN 25% 50 ML IV ONE (04:45)
[2021-09-28] MEDS ORDERED: MORPHINE SULFATE 4 MG/ML DISP.SYRIN. ONE (05:27)
[2021-09-28] MEDS ORDERED: IV NORMAL SALINE 50ML 50 ML ONE (06:08)
[2021-09-28] MEDS ORDERED: cefTRIAXone SODIUM 1 GM VIAL ONE (06:08)
[2021-09-28 06:29] LABS: BASO # 0.1 x10^3/uL (0.0-0.2); BASO % 1 % (0-3); EOS # 0.6 x10^3/uL (0.0-0.7); EOS % 7 % (0-3); HEMATOCRIT 23.5 % (39.0-53.0); HEMOGLOBIN 7.6 g/dL (13.0-17.5); LYMPH # 0.8 x10^3/uL (1.0-4.8); LYMPH % 10 % (24-48); MEAN CORPUSCULAR HEMOGLOBIN 29 pg (25-35); MEAN CORPUSCULAR HGB CONC 33 g/dL (31-37); MEAN CORPUSCULAR VOLUME 89 fL (79-100); MONO # 0.6 x10^3/uL (0.0-1.1); MONO % 8 % (0-9); NEUT # 5.7 x10^3uL (1.8-7.7); NEUT % 74 % (31-73); PLATELET COUNT 284 x10^3/uL (140-400); RED BLOOD COUNT 2.63 x10^6/uL (4.30-5.70); RED CELL DISTRIBUTION WIDTH 16.3 % (11.5-14.5); WHITE BLOOD COUNT 7.7 x10^3/uL (4.0-11.0)
[2021-09-28 06:35] LABS: CALCIUM 8.9 mg/dL (8.5-10.1); CREATININE 7.6 mg/dL (0.7-1.3); GFR 7.9; POTASSIUM 4.7 mmol/L (3.5-5.1)
[2021-09-28 06:42] LABS: ALBUMIN 2.1 g/dL (3.4-5.0); ALBUMIN/GLOBULIN RATIO 0.6 (1.0-1.7); TOTAL BILIRUBIN 0.3 mg/dL (0.2-1.0); TOTAL PROTEIN 5.5 g/dL (6.4-8.2)
--- NOTE | 2021-09-28 08:04 | PHYS DOC ---
Past History Past Medical History: CHF, Depression, Hypertension, Renal Failure Past Surgical History: Other Additional Past Surgical Histo: BKA-LEFT LEG, CARDIAC STENT, CATARACT Alcohol Use: None Drug Use: None Adult General Chief Complaint Chief Complaint: CHEST PAIN [facility] HPI Patient is a 40 year old male who presents with chest pain. I assumed care of this patient at shift turnover from Dr. Hagan. I did reexamine the patient. Patient is a 40-year-old male with significant comorbid conditions at baseline including renal failure, history of coronary artery disease. He came to the ER yesterday evening complaining of chest pain. He was at rest when he had pain over the right and left portions of his chest that was nonradiating. He called EMS and was brought to the ER. He had been at baseline health prior to that which is poor. He goes to dialysis Wednesday and has been compliant. At the time I assumed care of the patient, he complained only of pain on the penis which is chronic complaint and due to skin problems that he has normally. Chest pain has resolved. Review of Systems Review of Systems Constitutional: Denies fever or chills Eyes: Denies change in visual acuity, redness, or eye pain HENT: Denies nasal congestion or sore throat Respiratory: Denies cough or shortness of breath Cardiovascular: No additional information not addressed in HPI GI: Denies abdominal pain, nausea, vomiting, bloody stools or diarrhea : Denies dysuria or hematuria Musculoskeletal: Denies back pain or joint pain Integument: Chronic sores on skin that are very painful Neurologic: Denies headache All other systems were reviewed and found to be within normal limits, except as documented in this note. Current Medications Current Medications Current Medications Medications (Trade) Dose Ordered Sig/Harpreet Start Time Stop Time Status Last Admin Dose Admin Albumin Human 50 ml @ 50 mls/hr 1X ONCE 09/28/21 04:45 09/28/21 05:44 DC 09/28/21 04:58 50 MLS/HR Aspirin (Aspirin Chewable) 324 mg 1X ONCE 09/27/21 20:15 09/27/21 20:16 DC Ceftriaxone Sodium 1 gm/ Sodium Chloride 50 ml @ 100 mls/hr 1X ONCE 09/28/21 06:15 09/28/21 06:44 DC 09/28/21 06:11 100 MLS/HR Ceftriaxone Sodium (Rocephin) 1 gm STK-MED ONCE 09/28/21 06:08 09/28/21 06:09 DC Info (Do NOT chart on this entry -- for MONITORING) 1 each PRN DAILY PRN 09/27/21 21:30 09/29/21 21:29 Iohexol (Omnipaque 300 Mg/ml) 75 ml 1X ONCE 09/27/21 21:30 09/27/21 21:31 DC 09/27/21 21:34 75 ML Morphine Sulfate (Morphine 4mg Syringe) 4 mg 1X ONCE 09/28/21 08:00 09/28/21 08:01 UNV Nitroglycerin (Nitrostat) 0.4 mg PRN Q5MIN PRN 09/27/21 20:30 Oxycodone/ Acetaminophen (Percocet 5/325) 1 tab 1X ONCE 09/27/21 19:00 09/27/21 19:04 DC 09/27/21 19:22 1 TAB Pantoprazole Sodium (Protonix Vial) 80 mg 1X ONCE 09/27/21 21:30 09/27/21 21:31 DC 09/27/21 21:31 80 MG Sodium Chloride 50 ml @ As Directed STK-MED ONCE 09/28/21 06:08 09/28/21 06:09 DC Allergies Allergies Allergies Coded Allergies Type Severity Reaction Last Updated Verified metoclopramide Allergy Unknown 06/25/21 Yes Physical Exam Physical Exam Constitutional: Chronically ill-appearing 40-year-old male in no acute distress, overall is poorly kempt HENT: Normocephalic, atraumatic, bilateral external ears normal, oropharynx moist Eyes: PERRLA, EOMI Neck: Normal range of motion Cardiovascular:Heart rate regular rhythm Lungs & Thorax: Bilateral breath sounds clear Abdomen: Bowel sounds normal, soft Back: Normal ROM Extremities: No tenderness, dialysis shunt in the left arm with good bruit and thrill, Neurologic: Alert and oriented X 3 Psychologic: Affect normal Current Patient Data Vital Signs Vital Signs Date Time Temp Pulse Resp B/P (MAP) Pulse Ox O2 Delivery O2 Flow Rate FiO2 09/28/21 06:23 94 18 153/88 (109) 98 Room Air 09/28/21 02:12 97.2 Lab Results Laboratory Tests Test 09/27/21 19:30 1/8/22 20:35 09/27/21 21:15 09/28/21 06:00 Troponin I High Sensitivity 579 ng/L (4-75) H 1233 ng/L (4-75) H White Blood Count 8.0 x10^3/uL (4.0-11.0) 7.7 x10^3/uL (4.0-11.0) Red Blood Count 2.28 x10^6/uL (4.30-5.70) L 2.63 x10^6/uL (4.30-5.70) L Hemoglobin 6.8 g/dL (13.0-17.5) *L 7.6 g/dL (13.0-17.5) L Hematocrit 20.5 % (39.0-53.0) L 23.5 % (39.0-53.0) L Mean Corpuscular Volume 90 fL (79-100) 89 fL (79-100) Mean Corpuscular Hemoglobin 30 pg (25-35) 29 pg (25-35) Mean Corpuscular Hemoglobin Concent 33 g/dL (31-37) 33 g/dL (31-37) Red Cell Distribution Width 14.5 % (11.5-14.5) 16.3 % (11.5-14.5) H Platelet Count 276 x10^3/uL (140-400) 284 x10^3/uL (140-400) Neutrophils (%) (Auto) 76 % (31-73) H 74 % (31-73) H Lymphocytes (%) (Auto) 11 % (24-48) L 10 % (24-48) L Monocytes (%) (Auto) 7 % (0-9) 8 % (0-9) Eosinophils (%) (Auto) 5 % (0-3) H 7 % (0-3) H Basophils (%) (Auto) 1 % (0-3) 1 % (0-3) Neutrophils # (Auto) 6.1 x10^3uL (1.8-7.7) 5.7 x10^3uL (1.8-7.7) Lymphocytes # (Auto) 0.9 x10^3/uL (1.0-4.8) L 0.8 x10^3/uL (1.0-4.8) L Monocytes # (Auto) 0.6 x10^3/uL (0.0-1.1) 0.6 x10^3/uL (0.0-1.1) Eosinophils # (Auto) 0.4 x10^3/uL (0.0-0.7) 0.6 x10^3/uL (0.0-0.7) Basophils # (Auto) 0.1 x10^3/uL (0.0-0.2) 0.1 x10^3/uL (0.0-0.2) Prothrombin Time 10.9 SEC (9.4-11.4) Prothrombin Time INR 1.1 (0.9-1.1) Activated Partial Thromboplast Time 29 SEC (23-33) D-Dimer ([place]ly) 1.38 mg/L (0.00-0.50) H Sodium Level 136 mmol/L (136-145) 137 mmol/L (136-145) Potassium Level 4.6 mmol/L (3.5-5.1) 4.7 mmol/L (3.5-5.1) Chloride Level 94 mmol/L (98-107) L 94 mmol/L (98-107) L Carbon Dioxide Level 27 mmol/L (21-32) 24 mmol/L (21-32) Anion Gap 15 (6-14) H 19 (6-14) H Blood Urea Nitrogen 36 mg/dL (8-26) H 38 mg/dL (8-26) H Creatinine 7.2 mg/dL (0.7-1.3) H 7.6 mg/dL (0.7-1.3) H Estimated GFR (Cockcroft-Gault) 8.4 7.9 BUN/Creatinine Ratio 5 (6-20) L 5 (6-20) L Glucose Level 220 mg/dL (70-99) H 155 mg/dL (70-99) H Calcium Level 9.7 mg/dL (8.5-10.1) 8.9 mg/dL (8.5-10.1) Total Bilirubin 0.2 mg/dL (0.2-1.0) 0.3 mg/dL (0.2-1.0) Aspartate Amino Transferase (AST) 14 U/L (15-37) L 14 U/L (15-37) L Alanine Aminotransferase (ALT) 13 U/L (16-63) L 16 U/L (16-63) Alkaline Phosphatase 119 U/L (46-116) H 109 U/L (46-116) Total Protein 5.8 g/dL (6.4-8.2) L 5.5 g/dL (6.4-8.2) L Albumin 1.7 g/dL (3.4-5.0) L 2.1 g/dL (3.4-5.0) L Albumin/Globulin Ratio 0.4 (1.0-1.7) L 0.6 (1.0-1.7) L Stool Occult Blood Negative (NEG) EKG EKG [] Radiology/Procedures Radiology/Procedures [] Heart Score C/O Chest Pain: Yes HEART Score for Chest Pain: HEART Score for Chest Pain Response (Comments) Value History Slighlty/Non-Suspicious 0 ECG Normal 0 Age < 45 0 Risk Factors >3 Risk Factors or Hx CAD 2 Troponin >1-<3x Normal Limit 1 Total 3 Risk Factors: Risk Factors: DM, Current or recent (<one month) smoker, HTN, HLP, family his tory of CAD, obesity. Risk Scores: Risk Factors: DM, Current or recent (<one month) smoker, HTN, HLP, family history of CAD, obesity. Course & Med Decision Making Course & Med Decision Making Pertinent Labs and Imaging studies reviewed. (See chart for details) I assumed care of this patient at shift turnover. I did reexamine the patient intake history as above. He is currently not having chest pain but he does have history of known coronary artery disease. This elevates his HEART score significantly. Since patient has dialysis needs, cannot be admitted at this facility. We will try to place him. 11:40: Resting comfortably. No complaints. 13:15: Patient is reevaluated. His only complaint since transfer of care has been penis pain which is a chronic problem for which she normally uses lidocaine gel for at home. He has not had any additional chest pain over the course of the day or most of the night. Multiple troponins have returned and are not significantly elevating. He has elevated troponin at baseline given his renal failure. Patient does not likely have cardiac source for his initial chest pain. He is feeling improved. His EKG is unchanging. Decision is to discharge him home. He is given refill of medications for pain which she normally uses. He has a primary doctor follow-up appointment in 10 days. Recommend he come back to the ER for any new or additional symptoms. Dragon Disclaimer Dragon Disclaimer This electronic medical record was generated, in whole or in part, using a voice recognition dictation system. Departure Departure: Impression: Primary Impression: Anemia Additional Impressions: Abdominal ascites Hemoglobin A1c less than 7.0% Dialysis patient Disposition: HOME / SELF CARE / HOMELESS Condition: GOOD Referrals: MARCELA CANNON MD (PCP) Patient Instructions: Chest Pain (Nonspecific) Problem Qualifiers DEE MOLINA DO Sep 28, 2021 08:04
[2021-09-28 10:39] LABS: INFLUENZA A PATIENT NEGATIVE (NEGATIVE); INFLUENZA B PATIENT NEGATIVE (NEGATIVE)
[2021-09-28 13:22] VITALS: BP 144/71
[2021-09-28] MEDS ORDERED: LIDO5JEL3 TP (13:26)
[2021-09-28] MEDS ORDERED: OXYC5TAB88 PO (13:28)
--- NOTE | 2021-09-28 14:27 | EKG ---
[address] [address] Test Date: 2021-09-28 Test Time: 13:18:36 Pat Name: BONNIE TINEO Department: Room: Gender: M Accountant Auditor: : 1980 Requested By: DEE MOLINA Order Number: [id number] Reading MD: Akash Thompson Measurements Intervals [place] Rate: 90 P: 214 [place]: 126 QRS: 193 QRSD: 90 T: 134 QT: 382 QTc: 472 Interpretive Statements SINUS RHYTHM LOW LIMB LEAD VOLTAGE MILD NON SPECIFIC ST CHANGES Electronically Signed On 10-04-2021 17:28:38 DEV TECHNICAL MGR by Akash Thompson
== END 2021-09-28 13:47 | disposition home or self-care (01) ==
LOC: ER 18:55
DX: D64.9 Anemia, unspecified (principal); R18.8 Other ascites; I13.0 Hypertensive heart and chronic kidney disease with heart failure and stage 1 through stage 4 chronic kidney disease, or unspecified chronic kidney disease; E11.22 Type 2 diabetes mellitus with diabetic chronic kidney disease; N18.9 Chronic kidney disease, unspecified; I50.9 Heart failure, unspecified; Z20.822 Contact with and (suspected) exposure to COVID-19; Z99.2 Dependence on renal dialysis; Z79.01 Long term (current) use of anticoagulants; Z88.8 Allergy status to other drugs, medicaments and biological substances
CPT/HCPCS: 36415; 36430; 49083; 70450; 71250; 74177; 80053; 82274; 84484; 85025; 85379; 85610; 85730; 86850; 86900; 86901; 86920; 93005; 96365; 96366; 96367; 96375; 96376; 99285; C9113; J0696; J2270; P9016; P9046; Q9967

== ENCOUNTER 2021-09-30 17:34 | Emergency (ER) | payer OTHER ==
[~2021-09-30] VITALS: Ht 185.4 cm; Wt 128.7 kg
[~2021-09-30 17:34] MED LIST changes: +LIDO5JEL3 TP; +OXYC5TAB88 PO
--- NOTE | 2021-09-30 21:57 | PHYS DOC ---
Past History Past Medical History: CHF, Depression, DVT, Hypertension, Renal Failure Past Medical History PVDz, Past Surgical History: Other Additional Past Surgical Histo: BKA-LEFT LEG, CARDIAC STENT, CATARACT Alcohol Use: None Drug Use: None General Adult EDM: Chief Complaint: LOWER EXT PAIN HPI: HPI: ".. I was here on .. and they had me put some lidocaine cream..on my sore legs.. but I am out of cream... Patient is a 40 year old male who presents with above hx and complaints of lower ext. pain. Both legs are tender in thigh area. Pt. has hx below knee amputation on Lt. and PVDz. Pt. is on Eliquis 5 mg daily. Pt. states he has been compliant. Pt. is due for hemodialysis just tomorrow. Patient denies any trauma. Patient denies any fever or chills. Patient denies any recent travel. Patient does smoke. Patient normally follows with for primary. Pt. get scheduled hemodialysis on Wednesdays and Fridays. No recent travel. No significant ill contacts. No recent changes in meds. Patient has past medical history of malignant hypertension, poorly controlled diabetes, peripheral neuropathy, diabetic retinopathy, end-stage renal disease, noncompliance. Review of Systems: Review of Systems: Constitutional: Denies fever or chills Eyes: Denies change in visual acuity HENT: Denies nasal congestion or sore throat Respiratory: Denies cough or shortness of breath Cardiovascular: Denies chest pain or edema GI: Denies abdominal pain, nausea, vomiting, bloody stools or diarrhea : Denies dysuria Musculoskeletal: Complains of bilateral thigh pain Integument: Denies rash Neurologic: Denies headache, focal weakness or sensory changes Endocrine: Denies polyuria or polydipsia Lymphatic: Denies swollen glands Psychiatric: Denies depression or anxiety Family History: Family History: Noncontributory to presentation. Has 2 younger brothers who have asthma. Father had history of congestive heart failure. Mother has diabetes. Current Medications: Current Meds: See nursing for home meds Allergies: Allergies: Allergies Coded Allergies Type Severity Reaction Last Updated Verified metoclopramide Allergy Unknown 06/25/21 Yes Physical Exam: PE: Constitutional: Moderate acute distress, non-toxic appearance. [] HENT: Normocephalic, atraumatic, bilateral external ears normal, oropharynx moist, no oral exudates, nose normal. [] Eyes: PERRLA, EOMI, conjunctiva normal, no discharge. [] Neck: Normal range of motion, no tenderness, supple, no stridor. [] Cardiovascular: Tachycardia heart rate regular rhythm, no murmur [] Lungs & Thorax: Bilateral breath sounds equally. Scattered wheezes and basilar crackles on auscultation. Abdomen: Bowel sounds normal, soft, no tenderness, no masses, no pulsatile masses. Obese. Skin: Warm, dry, no erythema, no rash. [] Back: No tenderness, no CVA tenderness. [] Extremities: Bilateral thigh tenderness, no cyanosis, no clubbing, ROM intact, no edema. [Possibly some cording appreciated. Below the knee amputation on the left Neurologic: Alert and oriented X 3, moves all extremities on request, has decreased sensory and right foot., no new focal deficits noted. [] Psychologic: Affect anxious , judgement normal, mood normal. [] Current Patient Data: Vital Signs: Vital Signs Date Time Temp Pulse Resp B/P (MAP) Pulse Ox O2 Delivery O2 Flow Rate FiO2 09/30/21 20:28 98.4 93 18 137/97 (110) 98 EKG: EKG: [] Radiology/Procedures: Radiology/Procedures: [] Heart Score: C/O Chest Pain: N/A Risk Factors: Risk Factors: DM, Current or recent (<one month) smoker, HTN, HLP, family history of CAD, obesity. Risk Scores: Score 0 - 3: 2.5% MACE over next 6 weeks - Discharge Home Score 4 - 6: 20.3% MACE over next 6 weeks - Admit for Clinical Observation Score 7 - 10: 72.7% MACE over next 6 weeks - Early Invasive Strategies Course & Med Decision Making: Course & Med Decision Making Pertinent Labs and Imaging studies reviewed. (See chart for details) Patient to follow-up with primary care. Will increase Eliquis to 5 twice a day. Consider outpatient Doppler studies for peripheral vascular disease and DVT. Patient keep the appointment for hemodialysis tomorrow. Patient use lidocaine patches over areas of upper legs that are tender. Follow-up primary care. Follow-up with nephrology. Return if any concerns. No smoking. Impression: Impression: 1. Peripheral vascular disease 2. History of diabetes 3. History end-stage renal disease 4. History of noncompliance 5. History of DVTs 6. History of hypertension 7. Leg pain [] Dragon Disclaimer: Dragon Disclaimer: This electronic medical record was generated, in whole or in part, using a voice recognition dictation system. Departure Departure: Referrals: MARCELA CANNON MD (PCP) Scripts Lidocaine (Lidocaine PATCH ) 1 Each Adh..patch 2 EACH TP DAILY for FOR LOCAL PAIN, #30 PATCH REMOVE AFTER 12 HOURS Prov: BARI CORREA MD 09/30/21 Apixaban (ELIQUIS) 2.5 Mg Tablet 2.5 MG PO BID for PVDz for 30 Days, #60 TAB Prov: BARI CORREA MD 09/30/21 Apixaban (ELIQUIS) 5 Mg Tablet 5 MG PO BID for PVDz for 7 Days, #14 TAB Prov: BARI CORREA MD 09/30/21 Dragon Disclaimer This chart was dictated in whole or in part using Voice Recognition software in a busy, high-work load, and often noisy Emergency Department environment. It may contain unintended and wholly unrecognized errors or omissions. Dragon Disclaimer This chart was dictated in whole or in part using Voice Recognition software in a busy, high-work load, and often noisy Emergency Department environment. It may contain unintended and wholly unrecognized errors or omissions. BARI CORREA MD Sep 30, 2021 21:56
[2021-09-30 22:00] VITALS: BP 150/80
[2021-09-30] MEDS ORDERED: MORPHINE SULFATE 10 MG/ML SYRINGE. SQ ONE (22:30)
[2021-09-30] MEDS ORDERED: LIDOCAINE (700MG/PATCH) PATCH. ONE (22:49)
[2021-09-30] MEDS ORDERED: APIX2.5T PO (22:56)
[2021-09-30] MEDS ORDERED: APIX5TAB3 PO (22:56)
[2021-09-30] MEDS ORDERED: LIDO700A21 TP (22:56)
[2021-09-30] MEDS ORDERED: APIXABAN 5 MG TABLET. PO SCH (23:00)
[2021-10-01] MEDS ORDERED: LIDOCAINE (700MG/PATCH) PATCH. TD SCH (09:00)
== END 2021-09-30 23:47 | disposition home or self-care (01) ==
LOC: ER 17:34
DX: I73.9 Peripheral vascular disease, unspecified (principal); M79.652 Pain in left thigh; M79.651 Pain in right thigh; E11.22 Type 2 diabetes mellitus with diabetic chronic kidney disease; I13.2 Hypertensive heart and chronic kidney disease with heart failure and with stage 5 chronic kidney disease, or end stage renal disease; I50.9 Heart failure, unspecified; N18.6 End stage renal disease; Z99.2 Dependence on renal dialysis; Z86.718 Personal history of other venous thrombosis and embolism; Z89.512 Acquired absence of left leg below knee; Z79.01 Long term (current) use of anticoagulants; Z88.8 Allergy status to other drugs, medicaments and biological substances
CPT/HCPCS: 96372; 99283; J2270

== ENCOUNTER 2021-10-05 08:50 | Emergency (ER) | payer OTHER, MEDICAID ==
[~2021-10-05] VITALS: Ht 185.4 cm; Wt 128.7 kg
[~2021-10-05 08:50] MED LIST changes: +APIX2.5T PO; +APIX5TAB3 PO; +LIDO700A21 TP
--- NOTE | 2021-10-05 09:05 | PHYS DOC ---
Past History Past Medical History: CHF, Depression, DVT, Hypertension, Renal Failure Past Surgical History: Other Additional Past Surgical Histo: BKA-LEFT LEG, CARDIAC STENT, CATARACT Alcohol Use: None Drug Use: None Adult General HPI HPI Patient is a 40-year-old male, with a past medical history significant for CHF, DVT on Eliquis, insulin-dependent diabetes and on dialysis Wednesday and Fridays with last dialysis 3 days ago on who presents with a chief complaint of right thigh and hip pain that is been going on about 2 weeks, 6 out of 10, dull and achy in nature. States he has brought up to his primary care physician and he was in the hospital last week and brought it up but nobody has done anything about it. Denies any recent travels, traumas, fevers, chest pain, shortness of breath, diarrhea or blood in the stool. Patient states he does not make any urine. Review of Systems Review of Systems Review of systems otherwise unremarkable except noted in HPI Allergies Allergies Allergies Coded Allergies Type Severity Reaction Last Updated Verified metoclopramide Allergy Unknown 06/25/21 Yes Physical Exam Physical Exam Constitutional: Well developed, well nourished, appears uncomfortable and ill non-toxic appearance. [] HENT: Normocephalic, atraumatic, bilateral external ears normal, oropharynx moist, no oral exudates, nose normal. [] Eyes: conjunctiva normal, no discharge. [] Neck: Normal range of motion, no tenderness, supple, no str tachycardia intermittently with EKG at a rate of 94, prolonged QRS at 134, QTc 460, no STEMI, hyperacute T waves, no STEMI heart rate regular rhythm, no murmur [] Lungs & Thorax: Bilateral breath sounds clear to auscultation [] Abdomen: Distended with probable ascites, soft, no tenderness, no masses, no pulsatile masses. [] Skin: Warm, dry, no erythema, no rash. [] Back: No tenderness, no CVA tenderness. [] Extremities: Left BKA, right leg with 1+ pitting edema, no erythema, generalized tenderness around the thigh, range of motion intact, neurovascular exam intact Neurologic: Alert and oriented X 3, normal motor function, normal sensory function, no focal deficits noted. [] Psychologic: Affect normal, judgement normal, mood normal. [] EKG EKG [] Radiology/Procedures Radiology/Procedures [] Heart Score C/O Chest Pain: No Risk Factors: Risk Factors: DM, Current or recent (<one month) smoker, HTN, HLP, family history of CAD, obesity. Risk Scores: Risk Factors: DM, Current or recent (<one month) smoker, HTN, HLP, family history of CAD, obesity. Course & Med Decision Making Course & Med Decision Making Patient is a 40-year-old male who presents with a chief complaint of right thigh and hip pain for 2 weeks Vital signs notable for hypertension and tachycardia. Physical exam noted above. EKG with a rate of 94, QRS of 134, QTc 460, hyperacute T waves, no STEMI. Patient supposed to have dialysis Wednesday and Wednesday but missed Wednesday. Laboratory analysis notable for anemia, hyperkalemia to 9.5, hyponatremia 128, creatinine at 14.7, pH is 7.3 with a bicarb 19, carbon dioxide of 16, anion gap of 22, BNP greater than 35,000, elevated troponin at 443. Patient moved to the trauma bay, cardiac pads in place given treatment for hyperkalemia. Given aspi rin. Given dose of Rocephin. After initial treatment for hyperkalemia, potassium came down to 8.6, sodium up to 131, anion gap to 17. A second round of hyperkalemia treatment given with insulin, D50, albuterol, calcium and bicarb. Repeat BMP and troponin pending. Discussed patient with hospitalist and accepted to [facility] for continued evaluation and treatment of his hyperkalemia and metabolic acidemia secondary to most likely missed dialysis. Per hospitalist, gave dose of Kayexalate. Discussed all findings with patient who verbalized understanding and agreed with plan of transfer and admission to [facility]. Dragon Disclaimer Dragon Disclaimer This electronic medical record was generated, in whole or in part, using a voice recognition dictation system. Departure Departure: Impression: Primary Impression: Hyperkalemia Additional Impressions: Elevated troponin Dialysis patient Metabolic acidemia Abdominal ascites Disposition: HOME HEALTH CARE SERVICE Admitting Physician: Elaine Escobar Condition: GUARDED Referrals: MARCELA CANNON MD (PCP) Problem Qualifiers ANGEL MONTEMAYOR MD Oct 05, 2021 09:05
[2021-10-05] MEDS ORDERED: MORPHINE SULFATE 4 MG/ML DISP.SYRIN. IV ONE (09:30)
--- NOTE | 2021-10-05 09:38 | RAD ---
Exam Date: 10/05/2021 8:58 AM XR HIP (WITH OR WITHOUT PELVIS) 1 VIEW, XR FEMUR_RIGHT Indication: Reason: right thigh / hip pain / Spl. Instructions: / History: . FINDINGS/ IMPRESSION: No acute fracture or dislocation. Mild degenerative changes are seen in the hips bilaterally and the right knee. Vascular calcifications are noted. The soft tissues are otherwise within normal limits . Electronically signed by: Martínez Sandoval MD (10/05/2021 9:36 AM) TIFFANI
--- NOTE | 2021-10-05 10:17 | RAD ---
EXAMINATION: CT abdomen and pelvis without IV contrast. INDICATION:40 years, Male, cardiomegaly, abdominal distention. TECHNIQUE: Axial CT images of the abdomen and pelvis were obtained. Coronal and sagittal reformatted performed. COMPARISON: 09/27/2021. Exposure: One or more of the following individualized dose reduction techniques were utilized for thi s examination: 1. Automated exposure control 2. Adjustment of the mA and/or kV according to patient size 3. Use of iterative reconstruction technique. FINDINGS: LOWER CHEST: Dependent subsegmental atelectasis and/or scarring in bibasilar lungs. Cardiomegaly. ABDOMEN/PELVIS: Within the limitation of noncontrast exam, Mild hepatomegaly with diffuse steatosis, measures 22 cm in length. Vicarious excretion of contrast i n the gallbladder from earlier CT exam. No biliary ductal dilation. Calcified granulomas in the splee n. Similar mild splenomegaly measures up to 15.5 cm in length. Mildly atrophic pancreas with fat infi ltration. No adrenal nodule. No hydronephrosis or nephrolithiasis in either kidney. Extensive vascula r calcifications in both kidneys. Nonspecific bilateral perinephric fat stranding. No bowel obstruction. Colonic diverticulosis. Normal appendix. Moderate to large amount of abdominope lvic ascites, slightly decreasing since prior exam. Ill-defined peritoneal based soft tissue nodules in the left abdomen along the paracolic gutter, for example series 2 image 101 measures 2.9 cm. Serie s 2 image 93 measures 3.4 cm. Unchanged fat induration of the left upper abdominal mesentery and grea ter omentum. Moderate aortoiliac atherosclerotic calcifications without dilation. Similar multiple prominent to mi ldly enlarged upper abdominal, retroperitoneal and bilateral pelvic lymph nodes, the largest in the p eriportal region measures up to 1.2 cm short axis. Decompressed gallbladder is evaluation. Unremarkab le prostate. MUSCULOSKELETAL STRUCTURES: Diffuse anasarca. Multiple nodularities along the anterior abdominal wall subcutaneous fat, likely re lated to injection medication. Small fat and fluid containing umbilical hernia, similar to prior. No acute osseous process or suspicious lesion. IMPRESSION: 1. Moderate to large amount of abdominopelvic ascites, slightly decreasing since prior exam. Ill-defi rafael peritoneal based soft tissue nodules in the left abdomen along the paracolic gutter. Unchanged fa t induration in the left upper abdominal mesentery and greater omentum. Overall findings may relate t o fluid overload/cardiac disease. However, peritoneal nodularities and greater omental fat induration can be seen in peritoneal carcinomatosis. Recommend diagnostic paracentesis with cytology. 2. Similar multiple prominent to mildly enlarged upper abdominal, retroperitoneal and bilateral pelvi c lymph nodes, indeterminate. 3. Mild hepatomegaly with diffuse steatosis. 4. Other chronic/incidental findings, as described above. EXAMINATION: Chest radiograph. VIEWS: 1 COMPARISON: None INDICATION:40 years, Male, cardiac disease. FINDINGS: Low lung volume, may accentuate cardiac silhouette and pulmonary vascularity. Cardiomegaly. Bibasilar patchy airspace opacities. No pleural effusion or pneumothorax. No acute osseous process. IMPRESSION: 1. Bibasilar patchy airspace opacities, may represent atelectasis/scarring versus infiltrates. 2. Cardiomegaly. Electronically signed by: Alvaro Rawls MD (10/05/2021 10:14 AM) [id number]
[2021-10-05 10:49] LABS: BASO # 0.1 x10^3/uL (0.0-0.2); BASO % 1 % (0-3); EOS # 0.2 x10^3/uL (0.0-0.7); EOS % 2 % (0-3); HEMATOCRIT 22.4 % (39.0-53.0); HEMOGLOBIN 7.2 g/dL (13.0-17.5); LYMPH # 0.5 x10^3/uL (1.0-4.8); LYMPH % 3 % (24-48); MEAN CORPUSCULAR HEMOGLOBIN 29 pg (25-35); MEAN CORPUSCULAR HGB CONC 32 g/dL (31-37); MEAN CORPUSCULAR VOLUME 89 fL (79-100); MONO # 1.1 x10^3/uL (0.0-1.1); MONO % 8 % (0-9); NEUT # 11.7 x10^3uL (1.8-7.7); NEUT % 87 % (31-73); PLATELET COUNT 341 x10^3/uL (140-400); RED BLOOD COUNT 2.52 x10^6/uL (4.30-5.70); RED CELL DISTRIBUTION WIDTH 15.8 % (11.5-14.5); WHITE BLOOD COUNT 13.5 x10^3/uL (4.0-11.0)
[2021-10-05 10:57] LABS: ALBUMIN 1.6 g/dL (3.4-5.0); ALBUMIN/GLOBULIN RATIO 0.4 (1.0-1.7); CALCIUM 8.3 mg/dL (8.5-10.1); CREATININE 14.7 mg/dL (0.7-1.3); GFR 3.7; MAGNESIUM 2.2 mg/dL (1.8-2.4); TOTAL BILIRUBIN 0.3 mg/dL (0.2-1.0); TOTAL PROTEIN 5.3 g/dL (6.4-8.2)
[2021-10-05 11:05] LABS: POTASSIUM 9.5 mmol/L (3.5-5.1)
[2021-10-05] MEDS ORDERED: INSULIN REGULAR 100 UNIT/ML 3ML VIAL. IV ONE ×3 (11:15→17:45)
[2021-10-05] MEDS ORDERED: ALBUTEROL SULFATE 2.5 MG/3 ML NEBU. CONT NEB ONE ×2 (11:15→14:00)
[2021-10-05] MEDS ORDERED: DEXTROSE 50% 25 GM / 50ML DISP.SYRIN. IV ONE ×3 (11:15→17:45)
[2021-10-05] MEDS ORDERED: CALCIUM GLUCONATE 1,000 MG/10 ML VIAL IV ONE ×4 (11:15→17:45)
[2021-10-05] MEDS ORDERED: IV NORMAL SALINE 50ML 50 ML ONE (11:16)
[2021-10-05] MEDS ORDERED: cefTRIAXone SODIUM 1 GM VIAL ONE (11:17)
[2021-10-05] MEDS ORDERED: ALBUTEROL SULFATE 2.5 MG/3 ML NEBU. ONE (11:18)
[2021-10-05] MEDS ORDERED: IV RINGERS SOLUTION,LACTATED 1,000 ML IV ONE (11:30)
[2021-10-05] MEDS ORDERED: SODIUM BICARB ADULT 8.4% 50 MEQ/50 ML DISP.SYRIN. IV ONE ×3 (11:30→17:45)
[2021-10-05] MEDS ORDERED: ASPIRIN CHEWABLE 81 MG TABLET. PO ONE (11:45)
--- NOTE | 2021-10-05 12:28 | EKG ---
[address] [address] Test Date: 2021-10-05 Test Time: 10:24:35 Pat Name: BONNIE TINEO Department: Room: Gender: M Military Logistics Specialist: SHEN : 1980 Requested By: ANGEL MONTEMAYOR Order Number: [id number] Reading MD: Giacomo Reaves MD Measurements Intervals [place] Rate: 94 P: [place]: QRS: 180 QRSD: 134 T: 15 QT: 368 QTc: 460 Interpretive Statements SR LBBB Electronically Signed On 10-13-2021 18:07:46 SLIDE FORMING MACHINE OPERATOR by Giacomo Reaves MD
[2021-10-05 12:54] LABS: CALCIUM 8.5 mg/dL (8.5-10.1); CREATININE 14.7 mg/dL (0.7-1.3); GFR 3.7
[2021-10-05 13:02] LABS: INFLUENZA A PATIENT NEGATIVE (NEGATIVE); INFLUENZA B PATIENT NEGATIVE (NEGATIVE)
[2021-10-05 13:24] LABS: POTASSIUM 8.6 mmol/L (3.5-5.1)
[2021-10-05] MEDS ORDERED: LACTULOSE 20 GM/30 ML SOLUTION. PO ONE (14:30)
[2021-10-05] MEDS ORDERED: SODIUM POLYSTYRENE SULFONATE 15 GM/60 ML ORAL.SUSP. PO ONE (14:30)
[2021-10-05 15:22] VITALS: BP 153/43
[2021-10-05 15:28] LABS: CALCIUM 8.3 mg/dL (8.5-10.1); CREATININE 15.4 mg/dL (0.7-1.3); GFR 3.5
[2021-10-05 15:32] LABS: POTASSIUM 7.2 mmol/L (3.5-5.1)
[2021-10-05] MEDS ORDERED: diphenhydrAMINE HCL 25 MG CAPSULE PO ONE (15:45)
[2021-10-05] MEDS ORDERED: ACETAMINOPHEN 325 MG TABLET PO ONE (15:45)
--- NOTE | 2021-10-05 17:57 | EKG ---
[address] [address] Test Date: 2021-10-05 Test Time: 17:38:29 Pat Name: BONNIE TINEO Department: Room: Gender: M Online Marketing Analyst: SHEN : 1980 Requested By: ANGEL MONTEMAYOR Order Number: [id number] Reading MD: Giacomo Reaves MD Measurements Intervals [place] Rate: 95 P: 49 [place]: 198 QRS: 58 QRSD: 120 T: 42 QT: 370 QTc: 468 Interpretive Statements SINUS RHYTHM LOW LIMB LEAD VOLTAGE LBBB Electronically Signed On 10-13-2021 16:07:10 MANUFACTURING ASSEMBLER by Giacomo Reaves MD
== END 2021-10-05 18:13 | disposition home health service (06) ==
LOC: ER 08:50
DX: U07.1 COVID-19 (principal); E87.5 Hyperkalemia; R77.8 Other specified abnormalities of plasma proteins; E87.2 Acidosis; R18.8 Other ascites; M25.551 Pain in right hip; M79.651 Pain in right thigh; I13.0 Hypertensive heart and chronic kidney disease with heart failure and stage 1 through stage 4 chronic kidney disease, or unspecified chronic kidney disease; E11.22 Type 2 diabetes mellitus with diabetic chronic kidney disease; N18.9 Chronic kidney disease, unspecified; I50.9 Heart failure, unspecified; Z86.718 Personal history of other venous thrombosis and embolism; Z99.2 Dependence on renal dialysis; Z89.512 Acquired absence of left leg below knee; Z88.8 Allergy status to other drugs, medicaments and biological substances
CPT/HCPCS: 36415; 71045; 73521; 73552; 74176; 80048; 80053; 82803; 82947; 83605; 83735; 83880; 84484; 85025; 85379; 87428; 93005; 94640; 96365; 96375; 96376; 99285; C9803; J0610; J0696; J1815; J2270; J7120; J7613; U0003